=== PATIENT | female | born 1970 | race Caucasian/White ===

== ENCOUNTER 2024-11-14 20:42 | Emergency (ER) | payer BC ==
[2024-11-14] MEDS ORDERED: Ondansetron PF 4 MG/2 ML Vial ONE (21:03)
[2024-11-14] MEDS ORDERED: Ketorolac Tromethamine 30 MG (1 mL) VIAL ONE (21:04)
== END 2024-11-14 22:52 | disposition home or self-care (01) ==
LOC: CSHERS 20:42
DX: R19.7 Diarrhea, unspecified (principal); R11.2 Nausea with vomiting, unspecified; T38.3X5A Adverse effect of insulin and oral hypoglycemic [antidiabetic] drugs, initial encounter; I25.10 Atherosclerotic heart disease of native coronary artery without angina pectoris; Z87.891 Personal history of nicotine dependence
CPT/HCPCS: 96361; 96374; 96375; J1885; J2405